=== PATIENT | female | born 1995 | race Caucasian/White ===

== ENCOUNTER 2016-11-16 19:27 | Emergency (ER) | payer MEDICAID ==
[2016-11-16 21:15] VITALS: BP 120/67
== END 2016-11-16 21:15 | disposition home or self-care (01) ==
LOC: ED 19:27
DX: G51.0 Bell's palsy (principal)

== ENCOUNTER 2018-08-14 23:58 | Emergency (ER) | payer BC ==
[~2018-08-14] VITALS: Ht 167.6 cm; Wt 71.2 kg
[2018-08-15 00:13] VITALS: Ht 167.6 cm; Wt 71.2 kg
[2018-08-15 02:33] VITALS: BP 138/79
== END 2018-08-15 03:24 | disposition home or self-care (01) ==
LOC: ED 23:58
DX: H10.89 Other conjunctivitis (principal)

== ENCOUNTER 2018-10-10 22:04 | Emergency (ER) | payer BC ==
[~2018-10-10] VITALS: Ht 167.6 cm; Wt 68.9 kg
[2018-10-10 22:08] VITALS: Ht 167.6 cm; Wt 68.9 kg
[2018-10-10 22:42] VITALS: BP 148/104
== END 2018-10-10 22:42 | disposition home or self-care (01) ==
LOC: ED 22:04
DX: N39.0 Urinary tract infection, site not specified (principal)